=== PATIENT | female | born 1940 | race Caucasian/White ===

== ENCOUNTER 2019-05-11 13:03 | Outpatient (CLI) | payer MEDICARE ==
--- NOTE | 2019-05-11 15:40 | RAD ---
LUMBAR SPINE: 05/11/19 Four views. HISTORY: Back pain. There is a severe scoliotic curve to the lumbar spine with convexity to the left. [place] at the L2 leve l. Disc narrowing and degenerative changes of the lumbar spine. On the lateral projection, there appe ars to be an anterolisthesis at L4-5. Facet hypertrophy. No significant change in alignment with flex ion and extension. IMPRESSION: Scoliotic curvature of the lumbar spine to the left with apex at L2 measured at 38 to 40 degrees. Deg enerative changes with anterolisthesis at L4-5. POS: [facility]
--- NOTE | 2019-05-11 16:21 | MRI ---
MRI OF THE LUMBAR SPINE WITHOUT CONTRAST: 05/11/19 COMPARISON: None. HISTORY: Low back pain that radiates down the left leg. TECHNIQUE: Multiplanar and multisequence MR images were obtained of the lumbar spine without contrast. FINDINGS: There is moderate scoliotic curvature of the lumbar spine. The conus medullaris terminates normally a t T12-L1. There is a high T2 signal focus in the left kidney which likely represents a cyst. The oth er prevertebral and paraspinal soft tissues are unremarkable. Generalized disc desiccation is seen. T he vertebral bodies demonstrate normal height without fracture or subluxation. T12-L1: A small disc osteophyte complex is seen. Mild bilateral posterior facet arthrosis. Mild to mo derate central canal stenosis. Mild right neural foraminal stenosis. No left neural foraminal stenosi s. L1-2: A small disc osteophyte complex is seen. Mild bilateral posterior facet arthrosis. No central c anal stenosis. Severe right and moderate left neural foraminal stenosis. L2-3: A moderate disc osteophyte complex is seen. Moderate bilateral posterior facet arthrosis. Moder ate central canal stenosis. Moderate to severe right and mild left neural foraminal stenosis. L3-4: A moderate disc osteophyte complex is seen. Severe bilateral posterior facet arthrosis. Severe central canal stenosis. Severe right and moderate left neural foraminal stenosis. L4-5: A moderate disc osteophyte complex is seen. Severe left and moderate right posterior facet arth rosis. Moderate central canal stenosis. Mild right and moderate to severe left neural foraminal steno sis. L5-S1: A small disc osteophyte complex is seen. Mild bilateral posterior facet arthrosis. No central canal stenosis. Mild bilateral neural foraminal stenosis. IMPRESSION: Degenerative changes of the lumbar spine as above. There is predominantly moderate to severe neural f oraminal stenosis involving the concave aspect of the curvature in the lumbar spine. POS: [facility]
== END 2019-05-11 13:04 | disposition home or self-care (01) ==
LOC: TBSIIMAG 13:03
PROVIDERS: ATTEND Neurological Surgery
DX: M47.26 Other spondylosis with radiculopathy, lumbar region (principal); M43.16 Spondylolisthesis, lumbar region; M48.061 Spinal stenosis, lumbar region without neurogenic claudication
CPT/HCPCS: 72120; 72148